=== PATIENT | female | born 2000 | race Caucasian/White ===

== ENCOUNTER → 2024-01-09 | Emergency (ER) | payer OTHER ==
[~2024-01-09] VITALS: Ht 152.4 cm; Wt 56.7 kg
[~2024-01-09] MED LIST: ACETAMINOPHEN WITH CODEINE 1 UDTAB TABLET PO ONE; CEFTRIAXONE SODIUM 1,000 MG VIAL ONE; CEFTRIAXONE SODIUM 1,000 MG in 0.9 % SODIUM CHLORIDE 100 ML IV SCH; CEFTRIAXONE SODIUM 2,000 MG VIAL IV ONE; CEFTRIAXONE SODIUM 2,000 MG VIAL ONE; LIDOCAINE HCL 1% 10ML VIAL ONE; MORPHINE SULFATE 4 MG/ML CARTRIDGE IV SCH; MORPHINE SULFATE 4 MG/ML VIAL IV STA; NORVASC2.5 M1; PLAVIX75 MG PO; RINGERS SOLUTION,LACTATED 1,000 ML IV ONE; TOPROL XL25 M1
[2024-01-10 05:47] LABS: HEMATOCRIT 37.4 % (36.0-45.00); HEMOGLOBIN 12.8 g/dL (12.0-15.00); MEAN CELL VOLUME 84.7 fL (80.00-100.00); MEAN CORPUSCULAR HEMOGLOBIN 28.9 pg (27.00-32.0); MEAN CORPUSCULAR HGB CONC 34.2 g/dl (32.0-36.0); PLATELET COUNT 230 K/uL (150-450); RED BLOOD COUNT 4.41 M/uL (4.00-6.00); RED CELL DISTRIBUTION WIDTH 14.1 % (11.5-14.5)
[2024-01-10 06:35] LABS: CALCIUM 8.7 mg/dL (8.5-10.1); CREATININE SERUM 0.64 mg/dL (0.55-1.02); GFR 114.99; POTASSIUM 3.7 mEq/L (3.5-5.1)
== END | disposition designated cancer center or children's hospital (05) ==
LOC: ER 13:55
PROVIDERS: General Practice
DX: S62.608A Fracture of unspecified phalanx of other finger, initial encounter for closed fracture (principal); X58.XXXA Exposure to other specified factors, initial encounter; Y93.89 Activity, other specified; Y92.89 Other specified places as the place of occurrence of the external cause; Y99.8 Other external cause status; Z20.822 Contact with and (suspected) exposure to COVID-19; Z88.1 Allergy status to other antibiotic agents
CPT/HCPCS: 29125; 36415; 73130; 96365; 99285; J0696; J2270